=== PATIENT | male | born 1990 | race Caucasian/White ===

== ENCOUNTER 2023-06-28 08:09 | Outpatient (REF) | payer BC, SELFPAY ==
[2023-06-28 08:29] LABS: MANUAL DIFF FLAG NO
[2023-06-28 09:10] LABS: Basophils Absolute Auto 0.1 X10*3/uL (0.0-0.2); Basophils Percent Auto 0.9 % (0-2); Eosinophils Absolute Auto 0.2 X10*3/uL (0.0-0.4); Eosinophils Percent Auto 3.3 % (0-4); Hemoglobin 14.4 g/dl (14.0-18.0); Imm Gran Abs Auto 0.01 X10*3/uL (0.00-0.03); Imm Gran Pct Auto 0.2 % (0.0-0.4); Lymphocytes Absolute Auto 1.4 X10*3/uL (1.2-4.9); Lymphocytes Percent Auto 24.4 % (20-40); Mean Corpuscular HGB Conc 32.7 g/dl (31.0-36.0); Mean Corpuscular Hemoglobin 28.9 pg (27.0-33.0); Mean Corpuscular Volume 88.4 fL (80.0-98.0); Mean Platelet Volume 11.8 fL (9.4-12.4); Monocytes Absolute Auto 0.6 X10*3/uL (0.1-1.2); Monocytes Percent Auto 10.3 % (2-11); Neutrophils Absolute Auto 3.5 x10*3/uL (2.0-8.3); Neutrophils Percent Auto 60.9 % (45-73); Platelet Count 193 X10*3/uL (160-400); Red Blood Count 4.98 X10*6/uL (4.60-5.80); Red Cell Distribution Width 12.8 % (11.0-16.0); White Blood Count 5.8 X10*3/uL (4.8-10.8)
[2023-06-28 09:43] LABS: Alanine Aminotransferase 13 U/L (0-40); Albumin Level 4.6 g/dL (3.5-5.0); Alkaline Phosphatase 48 U/L (39-117); Anion Gap 14 (12-20); Aspartate Amino Transferase 15 U/L (5-37); Bilirubin Total 0.8 mg/dL (0.0-1.0); Blood Urea Nitrogen 20 mg/dL (9-16); Calcium 9.6 mg/dL (8.4-10.2); Carbon Dioxide 29 mmol/L (22-29); Chloride 103 mmol/L (96-108); Estimated Glomerular Filt Rate > 60; Glucose Random 148 mg/dL (60-115); Potassium 4.5 mmol/L (3.3-5.1); Sodium 141 mmol/L (135-145); Total Protein 7.5 g/dL (6.5-8.0)
[2023-06-28 10:02] LABS: TSH reflex Free T4 1.87 uIU/mL (0.32-4.0)
[2023-06-28 10:07] LABS: Vitamin B12 614 pg/mL (200-900)
== END 2023-06-28 08:10 | disposition home or self-care (01) ==
LOC: HO.LAB 08:09
PROVIDERS: Visit Provider Psychiatry & Neurology Psychiatry
DX: F33.2 Major depressive disorder, recurrent severe without psychotic features (principal); F10.99 Alcohol use, unspecified with unspecified alcohol-induced disorder
CPT/HCPCS: 36415; 80053; 82607; 84443; 85025

== ENCOUNTER → 2023-06-30 08:00 | Outpatient (BNV) | payer BC, SELFPAY | PROVIDERS: Visit Provider Psychiatry & Neurology Psychiatry | DX: F33.2 Major depressive disorder, recurrent severe without psychotic features (principal); F41.3 Other mixed anxiety disorders; F10.10 Alcohol abuse, uncomplicated | CPT/HCPCS: 90792; 90832; 99213 ==

== ENCOUNTER 2023-07-07 08:00 | Outpatient (RCR) | payer BC, SELFPAY ==
[2023-06-26 10:44] VITALS: BP 113/68; TEMP 36.9; BMI 21.1
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
[2023-06-27 11:59] LABS: Amphetamine Screen Urine Not Detected (Not Detect); Barbiturates, Urine Not Detected (Not Detect); Benzodiazepines Screen Urine Not Detected (Not Detect); Cannabinoid Screen Urine Not Detected (Not Detect); Cocaine Screen Urine Not Detected (Not Detect); Fentanyl, urine Not Detected (Not Detect); Opiate Screen Urine Not Detected (Not Detect); Phencyclidine Screen Urine Not Detected (Not Detect)
--- NOTE | 2023-06-29 08:12 | HO.PHP ---
PHP staff member faxed the referral for med management to [facility] for Jake Morley. PHP staff member is awaiting a call back with a scheduled date and time.
--- NOTE | 2023-06-29 14:29 | HO.PHP ---
The client's case was reviewed and opened in treatment team.
--- NOTE | 2023-07-04 21:22 | P.PNPSP_ITS ---
Subjective Subjective Date of Service: 07/04/23 Reason For Visit: AUD,Mdd,PTSD Interim History: Patient seen for follow-up today. No acute issues or concerns. Reports overall starting to feel better, mood still depressed but has found groups and talking stressors helpful. He reports cravings have abated some, but has some concerns once he is out of the program and no longer relying on the daily structure of waking up and coming in, and the supportive environment. 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 He is still without the ability to drive his car, after he lost his license for 60 days due to DUI, he has an upcoming court date on 07/19 and will try to get this appealed. In the meantime he has been staying busy in his home, rearranging cabinets and organizing his place. He denies having any SI in the interim. He is having some anxiety about returning to work on Monday. 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 There is some sleep disturbance with delayed onset and early waking at 4 or 5am. APpetite is stable. ROS is negative. Medication Compliance: No (as noted above) Attending Groups: Yes Review of Systems Acute medical concerns: No Mental Status Exam Mental Status Exam Narrative: Alert, oriented, in no acute distress. Casually dressed. Groomed.? Normal gait, no tics, tremors or dyskinesia, no psychomotor agitation or neurovegetative retardation. Calm, cooperative, forthcoming.? Eye contact. Mood is less depressed. Affect constricted..? Speech is normal rate, normal volume, diminished prosody and reactivity. No latency or pressured speech. Thought pr ocess is goal-directed, coherent, without illogicality or FOI/VEE. Thought content relevant to stressors. No thoughts of harming self or others. No gross evidence of psychosis. Cognition grossly intact. Sensorium clear. Insight and judgment good/fair. 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 Denies any questions or concerns continue to monitor Patient educated on: diagnosis, medication risk/benefits and substance abuse Informed Consent: understands Reason for contiued partial hosp. stay Substantial Risk for: inability to function, rapid decompensation, med/psych decompensation and other (relapse) Certification I certify that partial hospital treatment is medically necessary due to the symptoms and problems resulting from the patient's mental illness and the failure to treat the patient at the partial hospital level of care would likely result in the patient requiring inpatient psychiatric care which could not be prevented at a less intensive level of care. Total time managing care of this patient today __30__ minutes. Discharge Plan Discharge Attending provider: Radha Mclean Additional Instructions: New PCP appointment at [facility] in [address] Mary Lerner on Monday January 29, 2024 at 2:00 pm. Office Number is [phone]. Medications: New fluoxetine 10 mg capsule 10 mg PO QAM 14 Days Qty: 14 0RF naltrexone 50 mg tablet 50 mg PO .QHS 14 Days Qty: 14 0RF Stand Alone Forms: Patient Portal Discharge page
--- NOTE | 2023-07-05 15:14 | PC.NURSE ---
Jake asked for help finding a PCP. The soonest appointment I could find for him is at [facility] in [address], [place], [place] with Dr. Mary Lerner on Monday January 29, 2024 at 2:00 pm. Office Number is [phone].
--- NOTE | 2023-07-05 15:33 | HO.PHP ---
[facility] staff member provided Jake with his appointments through [facility], in which his intake appointment is scheduled on July 13, 2023 at 12 to 1 PM through the [place] office. Jake was also informed that his med provider appointment is August 01, 2023 at 9AM to 10 AM virtual with Kim Rahman. Jake was receptive.
--- NOTE | 2023-07-07 22:01 | P.PNPSP_ITS ---
Subjective Subjective Date of Service: 07/07/23 Reason For Visit: AUD,Mdd,PTSD Interim History: Patient seen today, is scheduled for discharge at end of the day. He denies any acute issues or concerns. Mood good, denies any depressive symtoms, feels more optimistic, anxiety better. Denies any helplessness, hopelessness or SI. He continues on Prozac, he has not started on the naltrexone but denies having any urges or cravings to drink. He will consider starting on it if he runs into any issues or if there is re-emerging compulsion to drink. He has an intake appointment at [facility] with Nayely Call on 07/13 and an appointment with a new psych provider on Aug 01 at 9am with Kim Ward CNP at [facility]. [facility] paperwork was filled out and returned to patient. Mental Status Exam Mental Status Exam Narrative: Alert, oriented, in no acute distress. Casually dressed. Groomed.? Normal gait, no tics, tremors or dyskinesia, no psychomotor agitation or neurovegetative retardation. Calm, cooperative, forthcoming.? Eye contact. Mood euthymic Affect subdued, some range in affect.? Speech is normal rate, normal volume, diminished prosody and reactivity. No latency or pressured speech. Thought process is goal- directed, coherent, without illogicality or FOI/VEE. Thought content relevant to stressors +future-oriented. No thoughts of harming self or others unpon inquiry.. No gross evidence of psychosis. Cognition grossly intact. Sensorium clear. Insight and judgment good. Diagnostics Vital Signs (24Hr): BMI result Body Mass Index 21.1 Assessment & Plan Assessment & Plan (1) Major depressive disorder, recurrent severe without psychotic features: Status: Acute Code(s): F33.2 - Major depressive disorder, recurrent severe without psychotic features (2) Other mixed anxiety disorders: Status: Acute Code(s): F41.3 - Other mixed anxiety disorders (3) Alcohol abuse: Status: Acute Code(s): F10.10 - Alcohol abuse, uncomplicated Plan Discharge from [facility] continue with medications will defer further medication management to outpatient [employer] financial[facility] Intake at [facility] with Nayely Call on 07/13 Psych provider appointemnt with Kim Ward CNP on 08/01 at 9am Patient educated on: diagnosis, medication risk/benefits and substance abuse Informed Consent: understands Reason for contiued partial hosp. stay Substantial Risk for: stable for discharge Certification I certify that partial hospital treatment is medically necessary due to the symptoms and problems resulting from the patient's mental illness and the failure to treat the patient at the partial hospital level of care would likely result in the patient requiring inpatient psychiatric care which could not be prevented at a less intensive level of care. Total time managing care of this patient today _30___ minutes. Discharge Plan Discharge Attending provider: Radha Mclean Additional Instructions: New PCP appointment at [facility] in [address] Mary Lerner on Monday January 29, 2024 at 2:00 pm. Office Number is [phone]. Medications: New naltrexone 50 mg tablet 50 mg PO .QHS 14 Days Qty: 14 0RF fluoxetine 20 mg capsule 20 mg PO DAILY Qty: 30 0RF Stand Alone Forms: Patient Portal Discharge page Patient Education: Depression (DC)
== END 2023-07-07 23:59 | disposition home or self-care (01) ==
LOC: HO.PHPA 08:00
PROVIDERS: Visit Provider Psychiatry & Neurology Psychiatry
DX: F33.2 Major depressive disorder, recurrent severe without psychotic features (principal); F41.3 Other mixed anxiety disorders; F10.10 Alcohol abuse, uncomplicated; F11.11 Opioid abuse, in remission; Z79.899 Other long term (current) drug therapy
CPT/HCPCS: 80307; 90791; 90853